=== PATIENT | male | born 1975 | race Caucasian/White ===

== ENCOUNTER 2022-04-10 12:57 | Emergency (ER) | payer BC ==
[~2022-04-10 12:57] MED LIST: Iopamidol 370 76% 100 ML VIAL ONE
[2022-04-10] MEDS ORDERED: Ondansetron PF 4 MG/2 ML Vial ONE (13:15)
[2022-04-10] MEDS ORDERED: Morphine 4 MG/ML VIAL ONE (13:15)
[2022-04-10] MEDS ORDERED: Ketorolac Tromethamine 30 MG/ML VIAL ONE (13:15)
[2022-04-10 13:45] LABS: Hemoglobin 16.3 g/dL (13.5-17.5); Mean Corpuscular HGB CONC 34.7 g/dL (32.0-36.0); Mean Corpuscular Hemoglobin 30.6 pg (27.0-33.0); Mean Corpuscular Volume 88.2 fl (81.2-95.1); Mean Platelet Volume 10.9 fl (7.4-10.4); Platelet Count 256 10x3/uL (150-450); RBC Distribution Width 13.4 % (11.5-14.5); Red Blood Cell (RBC) Count 5.33 10x6/uL (4.32-5.72); White Blood Cell (WBC) Count 21.3 10x3/uL (3.5-10.5)
[2022-04-10 13:56] LABS: ALT (SGPT) 52 U/L (8-55); AST (SGOT) 43 U/L (5-34); Albumin 5.3 g/dL (3.5-5.0); Alkaline Phosphatase 67 U/L (40-110); Anion Gap 24 mmol/L (10-20); BUN (Urea Nitrogen) 22 mg/dL (8.9-20.6); Bilirubin, Total 0.8 mg/dL (0.2-1.2); Calc. Creatinine Clearance 0 mL/min (70-130); Carbon Dioxide 19 mmol/L (22-29); Chloride 96 mmol/L (98-107); Estimated GFR 56; Globulin 3.5 g/dL (2.4-3.5); Glucose 158 mg/dL (70-105); Lipase 17 U/L (8-78); Potassium 3.5 mmol/L (3.5-5.1); Protein, Total 8.8 g/dL (6.0-8.3); Sodium 135 mmol/L (136-145)
[2022-04-10 14:10] LABS: MDiff Complete? YES
[2022-04-10 14:16] LABS: Band 10 % (5-11); Lymphocytes 1 % (21-51); Monocytes 4 % (0-10); Neutrophil 84 % (42-75); Reactive Lymphocytes 1 % (0-10)
[2022-04-10 14:19] LABS: Platelet Morphology Comment Appears Adequate; RBC Morphology Normal
[2022-04-10 16:15] LABS: Bilirubin Neg (Negative); Blood, Urine Negative (Negative); Clarity Clear (Clear); Glucose, Urine (Dipstick) Normal (Negative); Ketone, Urine 5 mg/dL (Negative); Leukocyte Negative (Negative); Nitrite Negative (Negative); Protein, Urine (Dipstick) 30 mg/dl (Neg-Trace); Specific Gravity, Urine 1.015 (1.005-1.030); Urobilinogen Normal mg/dL (Less than 2)
[2022-04-10 16:29] LABS: Bacteria/HPF Rare-Few HPF (None Seen); Mucous/LPF 1+ LPF (<2+); RBC/HPF 0-3 HPF (0-3); Renal Epithelial 0-3 HPF (None Seen); Transitional Epithelial 0-3 HPF (None Seen); WBC/HPF 0-3 HPF (0-3)
[2022-04-10 16:46] LABS: Lactic Acid 2.7 mmol/L (0.5-2.2)
[2022-04-10] MEDS ORDERED: Piperacillin/Tazobactam 4.5 GM VIAL ONE ×2 (18:33)
[2022-04-10 18:43] LABS: Lactic Acid 2.6 mmol/L (0.5-2.2)
== END 2022-04-10 19:33 | disposition short-term general hospital (02) ==
LOC: CSHERS 12:57
DX: A41.9 Sepsis, unspecified organism (principal); R10.11 Right upper quadrant pain; E86.0 Dehydration
CPT/HCPCS: 36415; 71045; 74174; 76705; 80053; 81003; 81015; 83605; 83690; 85025; 87040; 87086; 96361; 96365; 96375; J1885; J2270; J2405; J2543; Q9967